=== PATIENT | female | born 1950 | race Caucasian/White ===

== ENCOUNTER 2017-03-24 13:02 | Emergency (ER) | payer MEDICARE, MEDICAID ==
--- NOTE | 2017-03-24 14:42 | C.PDOC ---
History Of Present Illness 66 y/o female c/o itching to face on both cheeks and left arm since last Fri, with no hx of any new substances or foods being used. pt started taking benadryl on fri bid with no relief. pt feels like cheeks are a bit swollen today but no swelling to lips, tongue, uvula. denies any difficulty breathing or swalllowing. pt had similar episode two years ago. Time Seen by Provider: 03/24/17 13:51 Chief Complaint (Nursing): Allergic Reaction Past Medical History Vital Signs: Last Vital Signs Temp 98.5 F 03/24/17 14:57 Pulse 78 03/24/17 14:57 Resp 18 03/24/17 14:57 BP 122/82 03/24/17 14:57 Pulse Ox 98 03/24/17 15:58 - Medical History PMH: Depression, HTN, Osteoporosis Denies: CHF Family History: States: Unknown Family Hx - Social History Hx Alcohol Use: No Hx Substance Use: No - Immunization History Hx Tetanus Toxoid Vaccination: No Hx Influenza Vaccination: No Hx Pneumococcal Vaccination: No Review Of Systems ENT: Negative for: Throat Pain, Throat Swelling Skin: Positive for: Other (itching to bilateral cheeks and left arm) ED Course And Treatment O2 Sat by Pulse Oximetry: 98 Medical Decision Making Medical Decision Making: pt with mild erythema to face, both cheek and anterior left arm, not urticarial appearing, pruritic. will d/c with hydoxyzine, no steroids at this time, . pt advised to return to ER jen for any swelling to lips, tongue, difficulty swelling or breathing. throat closing, f;/u pmd Disposition Counseled Patient/Family Regarding: Diagnosis, Need For Followup, Rx Given - Disposition Referrals: [facility] [Outside] Disposition: HOME/ ROUTINE Disposition Time: 15:12 Condition: STABLE Additional Instructions: Take hydroxyzine as prescribed; may make you a bit sleepy. Follow up wiht your PMD or in medical clinic in 1-2 days. Cool compresses to face, calamine lotion to arm. Return immediately to ER for any difficulty breathing or swallowing, any swelling ot mouth, lips or tongue. Prescriptions: hydrOXYzine HCl [Atarax] 25 mg PO Q6H #30 tab Instructions: Antihistamine (By mouth), Urticaria (ED) Forms: Gen Discharge Inst Filipino, [facility] (Filipino) - Clinical Impression Clinical Impression: Skin irritation
[2017-03-24 14:58] VITALS: BP 122/82; PULSE 78; RESP 18; TEMP 98.5
[2017-03-24 15:10] VITALS: O2SAT 98
== END 2017-03-24 15:26 | disposition home or self-care (01) ==
LOC: C.ER 13:02
DX: L98.8 Other specified disorders of the skin and subcutaneous tissue (principal)